=== PATIENT | female | born 2000 | race American Indian/Alaskan Native ===

== ENCOUNTER 2019-12-12 16:12 | Observation (INO) | payer MEDICAID ==
[2019-12-12] MEDS ORDERED: ACETAMINOPHEN 325 MG TAB PO PRN (16:45)
[2019-12-12] MEDS ORDERED: DOCUSATE SODIUM 100 MG CAP PO PRN (16:45)
--- NOTE | 2019-12-12 17:15 | History and Physical Report ---
History of Present Illness Date of examination: 12/12/19 Chief complaint: elevated blood pressure sent from clinic for evaluation History of present illness: 19yo G1 at 37+6/7 weeks by MAXINE with RACIEL 12/27/19, presents with elevated blood pressures in the office today (140/90's). At bedside, BP 130/80's. She denies ABARCA,BV,abdominal pain/contractions,vaginal bleeding, loss of fluid She was +ve trich: treated today. Previous PIH workup: 24 urine protein as below.She has had a nephrology consult for proteinuria. 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 Family/Genetic History: none Social history: no significant social history - Obstetrical History Expected Date of Delivery: 12/27/19 Actual Gestation: 37 Week(s) 6 Day(s) : 1 Medications and Allergies Allergies Allergy/AdvReac Type Severity Reaction Status Date / Time No Known Allergies Allergy Verified 12/12/19 16:36 Active Meds: Active Medications Acetaminophen (Tylenol) 650 mg PO Q4H PRN PRN Reason: Pain MILD(1-3)/Fever >100.5/ABARCA Docusate Sodium (Colace) 100 mg PO Q12H PRN PRN Reason: Constipation Multivitamins/Iron/Calcium ( Vitamin) 1 each PO QDAY REPLACED BY [facility] Review of Systems All systems: negative (denies ABARCA/BV,SOB or chest pain) - Vital Signs Vital signs: Vital Signs Pulse BP 95 H 137/88 12/12/19 16:30 12/12/19 16:30 Temp Pulse Resp BP Pulse Ox 98.4 F 89 18 137/88 99 12/12/19 16:35 12/12/19 17:06 12/12/19 16:35 12/12/19 16:35 12/12/19 17:06 - Physical Exam Breasts: Positive: deferred Cardiovascular: Regular rate Lungs: Positive: Clear to auscultation Abdomen: Positive: normal appearance, soft, normal bowel sounds Uterus: Positive: enlarged (FH 38cm) Extremities: Positive: normal Deep Tendon Reflex Grade: Normal +2 - Obstetrical FHR: category 1 Uterine Contraction Monitor Mode: External Cervical Dilatation: 1 Cervical Effacement Percentage: 60 station: -3 Uterine Contraction Pattern: Irregular Uterine Contraction Intensity: Mild Results All other labs normal. Assessment and Plan IUP at 37+6/7 weeks Elevated BP's in the office: PIH workup: awaiting 24 hour urine that was completed today and in process at [facility]. At this time conservative management is appropriate. Treat for BP's >160/110, MGSO4 for change in baseline >30/15mmHg GBS positive: abx in labor.Patient is not feeling contractions. If she declares herself expect . Pain meds PRN Trich positive: treated in the office today Maternal/ well being reassuring overall. Fallon GOLDSTEIN
[2019-12-12 17:43] LABS: Hematocrit 29.5 % (30.3-42.9); Hemoglobin 10.1 gm/dl (10.1-14.3); Mean Corpuscular HGB Conc 34 % (30-34); Mean Corpuscular Volume 86 fl (79-97); Platelet Count 147 K/mm3 (140-440); Red Blood Count 3.44 M/mm3 (3.65-5.03); Red Cell Distribution Width 13.2 % (13.2-15.2)
[2019-12-12 18:06] LABS: Alanine Aminotransferase 12 units/L (7-56)
--- NOTE | 2019-12-12 18:06 | Ultrasound Report ---
ULTRASOUND BIOPHYSICAL PROFILE INDICATION / CLINICAL INFORMATION: Elevated blood pressure. COMPARISON: None available. FINDINGS: BREATHING MOVEMENT = 2 GROSS BODY MOVEMENT = 2 TONE = 2 QUALITATIVE AMNIOTIC FLUID VOLUME = 2 TOTAL BIOPHYSICAL SCORE = 03/14 AMNIOTIC FLUID INDEX (cm) = 12.0 PRESENTATION: Cephalic. HEART RATE (beats per minute): 172 IMPRESSION: biophysical profile = 03/14 Signer Name: Raymon Leung MD Signed: 12/12/2019 6:01 PM Workstation Name: [id number]
[2019-12-12 18:13] LABS: Uric Acid 4.2 mg/dL (3.5-7.6)
[2019-12-13] MEDS ORDERED: BUTALB/ACETAMINOPHEN/CAFFEINE TAB PO PRN (00:55)
[2019-12-13] MEDS ORDERED: SIMETHICONE 80 MG CHEW TAB PO PRN (02:13)
[2019-12-13] MEDS ORDERED: PRENATAL VIT27-FE FUMARATE-FOLIC ACID VIT TAB PO SCH (10:00)
[2019-12-13 10:14] VITALS: BP 121/73
--- NOTE | 2019-12-13 12:58 | Progress Note ---
Assessment and Plan - Patient Problems (1) 38 weeks gestation of Status: Acute (2) Mild pre-eclampsia affecting first Status: Acute Plan to address problem: Asymptomatic Last two BPs 130/74, 121/73 24hr urine protein on 10/23: 257 Repeat 24hr urine protein at office on 12/11 still pending PIH labs at hospital on 12/11: Plt 147, UA 4.2, AST 16, ALT 12, LDH [address] Menjivar, he recommended f/u at the clinic on 12/16/19 and IOL @ 39 weeks IOL @ [facility] scheduled 12/24/29 @ 8:30pm. 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 - H&P Patient reports: movement normal, other (denies headache, visual disturbances or RUQ pain), no loss of fluid, no vaginal bleeding, no contractions Objective - Vital Signs Vital Signs: Vital Signs - 12hr 12/13/19 12/13/19 12/13/19 01:09 02:43 04:13 Temperature Pulse Rate 84 74 Respiratory 18 Rate Blood Pressure 137/88 138/82 12/13/19 12/13/19 12/13/19 05:43 08:43 08:49 Temperature Pulse Rate 76 86 85 Respiratory Rate Blood Pressure 147/87 138/86 130/74 12/13/19 12/13/19 08:52 10:13 Temperature 98.2 F Pulse Rate 105 H Respiratory Rate Blood Pressure 121/73 - Exam FHR: auscultation normal, category 1 Uterine Contraction Monitor Mode: External Cervical Dilatation: 1 Cervical Effacement Percentage: 60 station: -3 Uterine Contraction Pattern: Irregular - Labs Labs: Abnormal Labs 12/12/19 12/12/19 17:30 17:30 RBC 3.44 L Hct 29.5 L Creatinine 0.6 L Lactate Dehydrogenase 228 H Laboratory Results - last 24 hr 12/12/19 12/12/19 12/12/19 17:30 17:30 17:30 WBC 9.8 RBC 3.44 L Hgb 10.1 Hct 29.5 L MCV 86 MCH 29 MCHC 34 RDW 13.2 Plt Count 147 Creatinine 0.6 L Estimated GFR > 60 Uric Acid 4.2 AST 16 ALT 12 Lactate Dehydrogenase 228 H Blood Type O POSITIVE Antibody Screen Negative
--- NOTE | 2019-12-13 13:08 | Discharge Summary ---
Providers - Providers Date of Admission: 12/12/19 16:13 Date of discharge: 12/13/19 Attending physician: BRIDGETTE HATCH MD Primary care physician: BRIDGETTE HATCH MD Hospitalization Reason for admission: IUP at term, other (Elevated BPs) Discharge diagnosis: other (IUP at term undelivered) Condition at discharge: Stable Disposition: DC-01 TO HOME OR SELFCARE - Discharge Diagnoses (1) 38 weeks gestation of Status: Acute (2) Mild pre-eclampsia affecting first Status: Acute Comment: Asymptomatic Reviewed signs and symptoms of pre-eclampsia and patient instructed to follow-up if present Plan - Provider Discharge Summary Activity: routine Diet: routine Instructions: routine Additional instructions: [] Smoking cessation referral if applicable(refer to patient education folder for contact #) [] Refer to [facility] Booklet Call your doctor immediately for: * Severe persistent headache * Right upper abdominal pain * Shortness of breath * visual disturbances * Altered mental status - Follow up plan Follow up: BRIDGETTE HATCH MD [Primary Care Provider] - 3 Days (Follow-up at the office in 3 days) Forms: [facility] Discharge Summary
== END 2019-12-13 12:51 | disposition home or self-care (01) ==
LOC: TRG 16:12 → LD 16:13 → TRG 17:31
PROVIDERS: ADMIT Obstetrics & Gynecology; ATTEND Obstetrics & Gynecology
DX: O14.03 Mild to moderate pre-eclampsia, third trimester (principal); O98.813 Other maternal infectious and parasitic diseases complicating pregnancy, third trimester; B95.1 Streptococcus, group B, as the cause of diseases classified elsewhere; Z3A.38 38 weeks gestation of pregnancy
CPT/HCPCS: 36415; 76819; 82565; 83615; 84450; 84460; 84550; 85027; 86850; 86900; 86901; G0378

== ENCOUNTER 2019-12-13 18:30 | Inpatient (IN) | payer MEDICAID ==
[~2019-12-13 18:30] MED LIST: AMPICILLIN/NS 2 GM/100 ML 2 GM/100 ML BAG IV ONE; LIDOCAINE (2%) 20 MG/1 ML VIAL 20 ML MDV INFILTRATI ONE; TERBUTALINE 1 MG/1 ML INJ SUB-Q PRN; ePHEDrine SULFATE 50 MG/1 ML INJ IV PRN; fentaNYL 100 MCG/2 ML INJ IV PRN
--- NOTE | 2019-12-13 18:43 | History and Physical Report ---
History of Present Illness Date of examination: 12/13/19 Date of admission: 12/13/2019 Chief complaint: Leaking of water from vagina since 3:00 PM. History of present illness: 19 year old presents to L&D complaining of leaking of water from vagina since 3:00 PM today. Pt. denies vaginal bleeding. She reports irregular contractions. Patient received care at [facility] and records are available. LMP 03/22/19. EDC 12/27/2019 (based on LMP and confirmed by US). significant for the following: GBS positive, elevated LFTs, PIH vs. mild preeclampsia, trichomonas (treated during ), first trimester vaginal bleeidng (resolved), proteinuria early in (had urology referral). labs are as follows: O+, antibody screen negative, rubella immune, hepatitis B surface antigen negative, HIV negative, HSV 2 negative, gonorrhea negative, chlamydia negative, trichomonas negative/positive, AFP negative, panorama low risk, horizon negative, 1 hour sugar test 109, GBS positive. Past History Past Medical History: no pertinent history Past Surgical History: no surgical history [facility] History: trichomonas (treated during ). denies: chlamydia, gonorrhea, hepatitis B, hepatitis C, herpes, HIV, syphilis Family/Genetic History: none Social history: single, lives with family, full code. denies: smoking, alcohol abuse, prescription drug abuse, IV drug use - Obstetrical History Expected Date of Delivery: 12/27/19 Actual Gestation: 38 Week(s) 0 Day(s) : 1 Para: 0 Hx # Term Pregnancies: 0 Number of Pregnancies: 0 Spontaneous Abortions: 0 Induced : 0 Number of Living Children: 0 Medications and Allergies Allergies Allergy/AdvReac Type Severity Reaction Status Date / Time No Known Allergies Allergy Verified 12/12/19 16:36 Home Medications Medication Instructions Recorded Confirmed Last Taken Type Vit-Fe Fumar-FA [ 1 tab PO QDAY 12/12/19 12/12/19 12/12/19 11:00 History Vitamin] Active Meds: Active Medications Ephedrine Sulfate (Ephedrine Sulfate) 10 mg IV Q2M PRN PRN Reason: Hypotension Fentanyl (Sublimaze) 100 mcg IV Q2H PRN PRN Reason: Pain,Severe (7-10) LABOR PAIN Oxytocin/Sodium Chloride (Pitocin/Ns 20 Unit/1000ml Drip) 20 units in 1,000 mls @ 125 mls/hr IV DIRECT SAURABH Oxytocin/Sodium Chloride (Pitocin/Ns 30 Unit/500ml) 30 units in 500 mls @ 0 mls/hr IV TITR SAURABH; Protocol Lactated Ringer's (Lactated Ringers) 1,000 mls @ 125 mls/hr IV DIRECT SAURABH Ampicillin Sodium (Ampicillin/Ns 2 Gm/100 Ml) 2 gm in 100 mls @ 100 mls/hr IV ONCE ONE; Protocol Stop: 12/13/19 19:29 Ampicillin Sodium (Ampicillin/Ns 1 Gm/50 Ml) 1 gm in 50 mls @ 100 mls/hr IV Q4H SAURABH; Protocol Lidocaine (Xylocaine 2%) 20 ml INFILTRATI ONCE ONE Stop: 12/13/19 18:31 Terbutaline Sulfate (Brethine) 0.25 mg SUB-Q ONCE PRN PRN Reason: Hyperstimulation/Hypertonicity Review of Systems All systems: negative (leaking of water from vagina; irregular contractions) - Vital Signs Vital signs: Vital Signs Pulse BP 71 138/90 12/13/19 18:35 12/13/19 18:35 Temp Pulse Resp BP Pulse Ox 71 138/90 12/13/19 18:35 12/13/19 18:35 - Physical Exam Abdomen: Positive: normal appearance, soft. Negative: distention, tenderness, guarding, rigidity Genitourinary (Female): Positive: normal external genitalia, normal perenium. Negative: perineal/vulvar lesions (no lesions noted on careful exam with bright light upon admission) Vagina: Positive: normal moisture Uterus: Positive: enlarged. Negative: tender Anus/Rectum: Positive: normal perianal skin Extremities: Positive: normal, edema (pedal edema bilaterally). Negative: tenderness - Obstetrical FHR: category 1 Uterine Contraction Monitor Mode: External Cervical Dilatation: 2 Cervical Effacement Percentage: 60 station: -3 Uterine Contraction Pattern: Irregular Uterine Contraction Intensity: Mild Results Result Diagrams: 12/13/19 18:54 12/13/19 18:54 All other labs normal. Assessment and Plan A: at 38 weeks gestation. Spontaneous rupture of membranes. PIH vs. mild preeclampsia. GBS positive. P: Admit. EFM. Preeclamptic labs. GBS prophylaxis. Augmentation of labor with Pitocin. Discussed with patient risks and benefits of Pitocin augmentation of labor. Patient consented to Pitocin augmentation of labor.
[2019-12-13] MEDS ORDERED: OXYTOCIN DRIP 30 UNITS/500 ML BAG IV SCH (19:00)
[2019-12-13] MEDS ORDERED: OXYTOCIN 20 UNIT/1000ML DRIP 20 UNITS/1,000 ML BAG IV SCH (19:00)
[2019-12-13 19:11] LABS: Basophils % (Auto) 0.2 % (0.0-1.8); Eosinophils % (Auto) 0.4 % (0.0-4.3); Hematocrit 29.6 % (30.3-42.9); Hemoglobin 9.8 gm/dl (10.1-14.3); Lymphocytes # (Auto) 1.4 K/mm3 (1.2-5.4); Lymphocytes % (Auto) 18.3 % (13.4-35.0); Mean Corpuscular HGB Conc 33 % (30-34); Mean Corpuscular Volume 87 fl (79-97); Monocytes # (Auto) 0.7 K/mm3 (0.0-0.8); Monocytes % (Auto) 8.8 % (0.0-7.3); Platelet Count 154 K/mm3 (140-440); Red Blood Count 3.41 M/mm3 (3.65-5.03); Red Cell Distribution Width 13.2 % (13.2-15.2)
[2019-12-13 19:36] LABS: Alanine Aminotransferase 12 units/L (7-56); Albumin 3.4 g/dL (3.9-5); BUN/Creatinine Ratio 9; Blood Urea Nitrogen 6 mg/dL (7-17); Calcium 9.4 mg/dL (8.4-10.2); Hemolysis Index 0; Uric Acid 4.6 mg/dL (3.5-7.6)
[2019-12-13] MEDS: LACTATED RINGERS 1,000 ML IV SCH (21:52)
[2019-12-13] MEDS ORDERED: hydrALAZINE 20 MG/1 ML INJ IV PRN (23:24)
--- NOTE | 2019-12-13 23:24 | Event Note ---
Date: 12/13/19 BPs elevated. Patient has Labetalol ordered for BP control. Will add Hydralazine for any markedly elevated blood pressures. Magnesium Sulfate ordered. Informed Dr. Menjivar re: elevated blood pressures, interventions taken/meds ordered. Discussed POC with patient and her S.O.
[2019-12-13] MEDS ORDERED: MAGNESIUM SULFATE 4 GM/100 ML BAG IV ONE (23:25)
[2019-12-14] MEDS ORDERED: AMPICILLIN/NS 2 GM/100 ML 2 GM/100 ML BAG IV ONE (00:31)
[2019-12-14] MEDS ORDERED: ONDANSETRON 4 MG/2 ML INJ IV ONE (01:10)
[2019-12-14] MEDS ORDERED: ONDANSETRON 4 MG/2 ML INJ ONE (01:12)
[2019-12-14] MEDS ORDERED: DEXMEDETOMIDINE 200 MCG/2 ML VIAL IV ONE (01:15)
[2019-12-14] MEDS ORDERED: ePHEDrine SULFATE 50 MG/1 ML INJ IV PRN (01:34)
[2019-12-14] MEDS ORDERED: NALOXONE 2 MG/2 ML INJ IV PRN (01:34)
--- NOTE | 2019-12-14 01:34 | Anesthesia Consultation ---
Anesthesia Consult and Med Hx Date of service: 12/14/19 - Airway Anesthetic Teeth Evaluation: Good ROM Head & Neck: Adequate Mental/Hyoid Distance: Adequate Mallampati Class: Class II Intubation Access Assessment: Probably Good - Pulmonary Exam CTA: Yes - Cardiac Exam Cardiac Exam: RRR - Pre-Operative Health Status ASA Pre-Surgery Classification: ASA3 Proposed Anesthetic Plan: Epidural - Pulmonary Hx Asthma: Yes (Albuterol PRN last use 2yrs ago) COPD: No Hx Pneumonia: No - Cardiovascular System Hx Hypertension: Yes - Central Nervous System Hx Seizures: No Hx Psychiatric Problems: No - Endocrine Hx Renal Disease: Yes (hx of renal stones, last omcodee 2017) Hx End Stage Renal Disease: No Hx Hypothyroidism: No Hx Hyperthyroidism: No - Hematic Hx Anemia: No Hx Sickle Cell Disease: No (has sickle cell trait) - Other Systems Hx Alcohol Use: No
[2019-12-14] MEDS: fentaNYL-BUPIV 2 MCG/ML-0.125% 200 MCG/100 ML BAG EPIDURAL SCH ×3 (02:15→16:53)
[2019-12-14] MEDS: MAGNESIUM SULFATE 40GM/1000ML 40 GM/1,000 ML BAG IV SCH (02:21)
[2019-12-14] MEDS: AMPICILLIN/NS 1 GM/50 ML 1 GM/50 ML BAG IV SCH ×3 (04:54→15:44)
[2019-12-14] MEDS: LACTATED RINGERS 1,000 ML IV SCH (09:46)
--- NOTE | 2019-12-14 10:00 | Event Note ---
Date: 12/14/19 Patient is having labor augmented due to SROM and due to preeclampsia. Patient denies headache, visual disturbance, nausea or vomiting, abdominal pain. SVE 5/90/-3. Pitocin at 10 milliunits per minute. Patient is comfortable after receiving epidural. Plan to use IUPC if no change on next vaginal exam.
[2019-12-14] MEDS ORDERED: BUPIVACAINE/PF (0.25%) 2.5 MG/ML 10 ML VIAL INFILTRATI ONE ×2 (10:05→15:55)
--- NOTE | 2019-12-14 12:32 | Event Note ---
Date: 12/14/19 Several late appearing FHR decelerations noted. Pitocin is off; patient is resting in left lateral position and has oxygen per face mask at [address] Menjivar re: patient at 11:20 and 11:[address] Menjivar is on his way in to hospital to evaluate for mode of delivery. Patient remains afebrile.
--- NOTE | 2019-12-14 16:56 | Event Note ---
Date: 12/14/19 No cervical change on vaginal exam. Still [address] Menjivar and informed him of no cervical change, prolonged ROM, and FHR tracing. Dr. Menjivar states to continue Pitocin augmentation.
--- NOTE | 2019-12-14 18:02 | Event Note ---
Date: 12/14/19 Dr. Menjivar called section. Team notified. Mauro put in.
[2019-12-14] MEDS ORDERED: BICITRA ORAL LIQD 30ML PO SCH (18:03)
[2019-12-14] MEDS ORDERED: FAMOTIDINE 20 MG/2 ML INJ IV SCH (18:03)
--- NOTE | 2019-12-14 18:34 | Event Note ---
Date: 12/14/19 I agree with hydramatic specialist Shari Johns that patient has been slow to progress coupled with intolerance of labor. Plan: for delivery.
[2019-12-14] MEDS ORDERED: OXYTOCIN 20 UNIT/1000ML DRIP 20 UNITS/1,000 ML BAG IV SCH ×2 (19:00→20:00)
[2019-12-14] MEDS ORDERED: ceFAZolin/Water 2 GM/20 ML 2 GM/20 ML SYRINGE IV SCH (19:00)
[2019-12-14] MEDS ORDERED: LACTATED RINGERS 1,000 ML IV SCH (19:00)
[2019-12-14] MEDS ORDERED: METOCLOPRAMIDE 10 MG/2 ML INJ IV SCH (19:03)
[2019-12-14] MEDS ORDERED: BUPIVACAINE/PF (0.5%) 5 MG/1 ML 30 ML VIAL INFILTRATI ONE (19:05)
[2019-12-14] MEDS ORDERED: LIDOCAINE 2%/EPINEPHRINE 1:200,000 VIAL (20 ML) INFILTRATI ONE (19:05)
[2019-12-14] MEDS ORDERED: KETOROLAC 30 MG/1 ML INJ ONE (19:05)
[2019-12-14] MEDS ORDERED: OXYTOCIN 10 UNIT/1 ML INJ ONE (19:05)
[2019-12-14] MEDS ORDERED: SODIUM BICARB 8.4% 50 MEQ/50 ML VIAL IV ONE (19:05)
[2019-12-14] MEDS ORDERED: ceFAZolin/STERILE WATER 2 GM/20 ML SYRINGE IV ONE (19:07)
[2019-12-14] MEDS ORDERED: WATER FOR IRRIG STERILE 1,500 ML BOTTLE IR ONE (19:16)
[2019-12-14] MEDS ORDERED: SODIUM CHLORIDE 0.9% IRR 1,500 ML BOTTLE IR ONE (19:16)
[2019-12-14] MEDS ORDERED: ACETAMINOPHEN 325 MG TAB PO PRN (19:51)
[2019-12-14] MEDS ORDERED: WITCH HAZEL/ GLYCERIN PAD TP PRN (19:51)
[2019-12-14] MEDS ORDERED: LANOLIN/ZINC/DIMETHICONE (LANSINOH) 7 GM TP PRN (19:51)
[2019-12-14] MEDS ORDERED: ONDANSETRON 4 MG/2 ML INJ IV PRN (19:51)
[2019-12-14] MEDS ORDERED: LIDOCAINE MPF (2%) 20 MG/1 ML VIAL 5 ML ONE (19:51)
[2019-12-14] MEDS ORDERED: NALOXONE 0.4 MG/1 ML INJ IV PRN (19:51)
--- NOTE | 2019-12-14 19:58 | Operative Report ---
Operative Report Operative Report: Date of surgery: December 14, 2019 Preoperative diagnoses:[] Failure to progress, intolerance of labor Postoperative diagnos: The same. Operation: Lower segment transverse delivery Surgeon:Lenny Menjivar MD Pump Erector: Herminio Rai CRNA Anesthesia: S. Ziebach block Estimated blood loss: 500 mL Complications: None Findings: There was a live baby boy in cephalic presentation, occiput posterior within the false maternal pelvis. weight was 7 pounds t 12 ounces, with Apgars 7/9. He uterus, fallopian tubes and the ovaries were all grossly normal. There were no pathologies identifiable within the lower abdomen and pelvis. Procedure in detail: The patient was taken to the operating room and given a spinal block. Patient was placed in the straight supine position and a Tidwell catheter was inserted. The patient was prepped in the abdomen. The drapes were placed. A timeout was done. With the go ahead from the slip filler, a Pfannenstiel incision was made. This incision was carried across the subcutaneous layer to the fascia which was also divided transversely. The recti abdominis muscle flaps were stripped from the fascia using a combination of blunt and sharp dissections. The muscles were in the midline to gain access to the anterior parietal peritoneum whi ch was divided after excluding any underlying viscera. The access to the peritoneal cavity was then widened by manual stretching. The bladder blade was applied. The utero vesicle peritoneal flap was divided transversely allowing the bladder to be displaced caudally. The uterine incision was placed in the lower segment transversely. The uterine incision was carried to the decidual layer. The uterine incision was extended on both sides using the bandage scissors. The amniotic sac was ruptured with clear fluid. The head was lifted out of the false maternal pelvis and delivered through the incision using fundal pressure. The airways were bulb suctioned beginning with the mouth. Continuing fundal pressure combined with traction on the mandibular processes of the jaw delivered the rest of the baby. The umbilical cord was double clamped and divided. The baby was carefully transferred to the pediatric team. The placenta was manually removed from the uterine cavity. The uterine cavity was explored and was empty of any placental remnants. The uterine incision was repaired in 2 layers with #1 Vicryl. The surgical line on the uterus was hemostatic. Blood and clots were cleared from the peritoneal cavity. The anterior parietal peritoneum was repaired with #1 Vicryl. The fascia was repaired with #1 Vicryl. The subcutaneous layer was made hemostatic using the B ovie before the skin was closed subcuticularly with 4-0 Vicryl. There were no complications. The estimated blood loss was 500 mL. All sponges and instrument counts were correct. Patient was safely transferred to the recovery room.
--- NOTE | 2019-12-14 20:23 | Post Anesthesia Evaluation ---
- Post Anesthesia Evaluation Patient Participated: Yes Airway Patent: Yes Stable Respiratory Function: Yes Nausea/Vomiting: No Temp > 96.8F: Yes Pain Manageable: Yes Adequeate Hydration: Yes Anesthesia Complications: No Block Receding Appropriately: Yes
[2019-12-14 21:46] LABS: Amphetamine Screen,Urine PRESUMPTIVE NEGATIVE; Benzodiazepines Screen,Urine PRESUMPTIVE NEGATIVE; Cannabinoid Screen,Urine PRESUMPTIVE NEGATIVE; Cocaine Screen,Urine PRESUMPTIVE NEGATIVE; Methadone Screen,Urine PRESUMPTIVE NEGATIVE; Opiate Screen,Urine PRESUMPTIVE NEGATIVE
[2019-12-14] MEDS ORDERED: miSOPROStol 200 MCG TAB ONE (21:50)
[2019-12-14] MEDS ORDERED: miSOPROStol 200 MCG TAB PR ONE (21:50)
[2019-12-14 21:51] LABS: Bilirubin,Urine NEG (Negative); Blood,Urine LG (Negative); Color,Urine Straw (Yellow); Protein,Urine <15 mg/dL mg/dL (Negative); Urobilinogen,Urine < 2.0 mg/dL (<2.0)
--- NOTE | 2019-12-14 23:42 | Event Note ---
Date: 12/14/19 Was asked by nurse to come evaluate patient's vaginal bleeding. Patient has had primary LTCS earlier this evening. Nurse states she has already called surgeon re: patient's bleeding. Patient has paulina pad on which is not yet saturated; nurse states paulina pad was changed about an hour ago. No clots seen. Fundus firm and midline below umbilicus with fundal massage. Small trickle of bright red vaginal bleeding noted with fundal massage; this trickle resolved as uterus firmed more during fundal massage. Patient is currently receiving IV Pitocin. Judy fonseca states she has also given patient rectal Cytotec 800 micrograms at 22:04. Patient is receiving magnesium sulfate. Spoke with Dr. Menjivar on the phone and informed him of all of the above, including trickle of blood which resolved with fundal massage, and interventions patient has already received including Pitocin and Cytotec. Dr. Menjivar states to continue the IV Pitocin and magnesium sulfate as he has already ordered; he states no need to give Hemabate or any additional medications for the bleeding other than the Pitocin which patient is already receiving. No new orders received from Dr. Menjivar. Relayed what Dr. Menjivar said to patient's nurse and to charge nurse.
[2019-12-15] MEDS ORDERED: ceFAZolin/NS 1 GM/50 ML 1 GM/50 ML BAG IV SCH (02:00)
[2019-12-15] MEDS: MORPHINE 4 MG/1 ML INJ IV PRN ×2 (03:25→15:46)
[2019-12-15] MEDS: MAGNESIUM SULFATE 40GM/1000ML 40 GM/1,000 ML BAG IV SCH (05:33)
[2019-12-15] MEDS: KETOROLAC 30 MG/1 ML INJ IV PRN ×3 (07:58→21:38)
[2019-12-15] MEDS: HYDROcodone/ACETAMINOPHEN 5-325 MG TAB PO PRN ×3 (08:00→21:37)
[2019-12-15] MEDS: LACTATED RINGERS 1,000 ML IV SCH (08:34)
[2019-12-15 08:36] LABS: Hematocrit 27.6 % (30.3-42.9)
--- NOTE | 2019-12-15 11:14 | Progress Note ---
Assessment and Plan /postop day 1 S/P primary LTCS. Preeclampsia with severe features, on magnesium sulfate. Anemia. P: Continue magnesium sulfate and Labetalol. Supplement with iron. Continue SCDs. Subjective - Subjective Date of service: 12/15/19 Principal diagnosis: day 1 S/P primary LTCS; preeclampsia with severe features Interval history: /postop day 1 S/P primary LTCS. Preeclampsia with severe features. Magnesium Sulfate continues. Patient denies headache, chest pain, cough, shortness of breath, visual disturbance. Her only complaint is mild incisional pain, which she states is relieved by pain medication. Patient reports: appetite normal, pain well controlled, flatus, no nauseated : doing well Objective - Vital Signs Latest vital signs: Vital Signs Temp Pulse Resp BP BP BP Pulse Ox 12/15/19 10:46 92 H 139/73 12/15/19 10:45 94 H 97 12/15/19 10:44 93 H 153/77 12/15/19 10:43 98.9 F 12/15/19 10:42 100 H 146/71 12/15/19 09:23 112 H 97 12/15/19 09:18 104 H 97 12/15/19 09:13 107 H 97 12/15/19 09:08 101 H 97 12/15/19 09:03 108 H 97 12/15/19 08:58 108 H 98 12/15/19 08:53 100 H 98 12/15/19 08:48 94 H 96 12/15/19 08:43 100 H 97 12/15/19 08:41 92 H 140/88 12/15/19 08:38 94 H 97 12/15/19 08:33 97 H 98 12/15/19 08:28 96 H 97 12/15/19 08:23 93 H 98 12/15/19 08:18 104 H 97 12/15/19 08:13 103 H 98 12/15/19 08:08 102 H 98 12/15/19 08:03 98 H 97 12/15/19 08:00 16 12/15/19 07:58 110 H 16 97 12/15/19 07:53 102 H 98 12/15/19 07:50 96 H 146/83 12/15/19 07:48 100 H 98 12/15/19 07:45 97.7 F 98 H 16 146/83 140/88 97 051020 07:43 98 H 98 05 07:38 98 H 97 05 07:35 100 H 135/75 05 07:33 97 H 98 05 07:28 103 H 98 12/15/19 07:23 96 H 97 05 07:18 97 H 98 12/15/19 07:13 93 H 97 12/15/19 07:08 92 H 97 12/15/19 07:03 94 H 98 12/15/19 06:58 97 H 97 12/15/19 06:53 92 H 98 05 06:48 91 H 96 05 06:43 94 H 96 12/15/19 06:38 101 H 97 12/15/19 06:35 96 H 147/82 05 06:33 96 H 97 12/15/19 06:28 94 H 96 05 06:23 92 H 96 12/15/19 06:18 93 H 97 12/15/19 06:13 90 96 05 06:08 89 96 05 06:03 92 H 97 12/15/19 05:58 84 94 0510 05:53 87 97 05 05:48 89 97 05 05:43 101 H 97 12/15/19 05:38 88 96 05 05:35 90 125/61 0520 05:33 94 H 96 0520 05:28 98 H 97 12/15/19 05:23 91 H 97 0520 05:18 89 96 0520 05:13 89 97 0520 05:08 96 H 98 05 05:03 100 H 96 051020 05:00 99 F 05 04:58 94 H 96 05 04:53 94 H 96 0520 04:48 93 H 96 051020 04:43 88 96 051020 04:38 92 H 97 0510 04:35 88 130/55 05/1020 04:33 93 H 97 05 04:28 86 97 05/10/20 04:23 86 96 05/10/20 04:18 92 H 97 05/10/20 04:13 91 H 96 05/10/20 04:08 94 H 97 05/10/20 04:03 92 H 97 05/10/20 03:58 98 H 97 05/10/20 03:53 107 H 97 05/10/20 03:48 98 H 97 05/10/20 03:43 93 H 97 05/10/20 03:38 96 H 97 05/10/20 03:35 100 H 134/57 05/10/20 03:33 95 H 97 05/10/20 03:28 99 H 97 05/10/20 03:23 98 H 97 05/10/20 03:18 99 H 97 05/10/20 03:13 95 H 97 05/1020 03:08 92 H 97 05/10/20 03:03 93 H 97 05/10/20 03:00 97.8 F 0520 02:58 96 H 97 05/1020 02:53 94 H 97 05/10/20 02:48 99 H 97 05/10/20 02:43 95 H 96 05/10/20 02:38 92 H 97 05/10/20 02:35 93 H 126/57 05/10/20 02:33 101 H 97 05/10/20 02:28 93 H 97 05/10/20 02:23 95 H 97 05/10/20 02:18 97 H 97 05/10/20 02:13 102 H 97 05/10/20 02:08 91 H 96 05/10/20 02:03 96 H 96 05/10/20 01:58 107 H 98 05/10/20 01:53 91 H 95 05/10/20 01:48 94 H 95 05/10/20 01:43 91 H 95 05/10/20 01:38 92 H 95 05/10/20 01:35 97 H 142/74 05/10/20 01:33 91 H 95 05/10/20 01:31 87 94 05/10/20 01:28 92 H 95 05/10/20 01:23 91 H 95 05/10/20 01:18 91 H 95 05/10/20 01:13 90 95 05/10/20 01:08 93 H 95 05/10/20 01:03 107 H 96 12/15/19 00:58 90 97 12/15/19 00:57 93 H 94 12/15/19 00:53 92 H 95 12/15/19 00:52 88 94 12/15/19 00:48 88 95 12/15/19 00:43 87 96 12/15/19 00:38 87 97 12/15/19 00:35 88 140/60 12/15/19 00:33 88 96 12/15/19 00:28 89 96 12/15/19 00:23 84 98 12/15/19 00:22 88 94 12/15/19 00:18 90 96 12/15/19 00:13 84 97 12/15/19 00:08 90 97 12/15/19 00:03 83 96 12/15/19 00:00 98.9 F 82 97 12/14/19 23:58 90 97 12/14/19 23:53 83 96 12/14/19 23:48 82 97 12/14/19 23:43 82 97 12/14/19 23:38 83 98 12/14/19 23:35 81 145/88 12/14/19 23:33 84 99 12/14/19 23:28 103 H 98 12/14/19 23:23 100 H 99 12/14/19 23:18 99 H 97 12/14/19 23:13 92 H 100 12/14/19 23:08 90 99 12/14/19 23:03 88 100 12/14/19 22:58 83 100 12/14/19 22:53 81 99 12/14/19 22:48 82 97 12/14/19 22:43 88 99 12/14/19 22:38 79 97 12/14/19 22:33 85 98 12/14/19 22:31 78 87 12/14/19 22:10 98.6 F 80 12 140/96 97 12/14/19 22:00 69 18 145/93 97 12/14/19 21:39 97.8 F 82 22 137/90 98 12/14/19 21:15 84 21 148/95 98 12/14/19 21:00 77 17 139/90 97 12/14/19 20:45 76 17 136/92 97 12/14/19 20:30 78 17 139/92 96 12/14/19 20:15 79 18 140/92 96 12/14/19 20:10 77 16 142/91 96 12/14/19 20:04 80 18 138/89 96 12/14/19 19:59 98.1 F 92 H 21 125/82 97 12/14/19 18:55 93 H 126/76 12/14/19 18:52 83 97 12/14/19 18:47 84 97 12/14/19 18:42 93 H 120/74 98 12/14/19 18:37 95 H 100 12/14/19 18:32 80 100 12/14/19 18:27 92 H 100 12/14/19 18:26 87 118/65 12/14/19 18:22 87 100 12/14/19 18:17 91 H 100 12/14/19 18:12 87 131/73 100 12/14/19 18:07 93 H 99 12/14/19 18:02 95 H 100 12/14/19 17:57 88 100 12/14/19 17:56 86 116/64 12/14/19 17:52 82 100 12/14/19 17:47 89 94 12/14/19 17:42 91 H 95 12/14/19 17:40 90 137/68 12/14/19 17:39 91 H 94 12/14/19 17:37 93 H 95 12/14/19 17:34 95 H 94 12/14/19 17:32 91 H 95 12/14/19 17:27 94 H 95 12/14/19 17:26 93 H 134/70 12/14/19 17:22 94 H 95 12/14/19 17:17 102 H 97 12/14/19 17:12 91 H 136/72 96 12/14/19 17:07 95 H 100 12/14/19 17:02 83 100 12/14/19 17:00 98.4 F 12/14/19 16:57 95 H 100 12/14/19 16:56 91 H 129/75 12/14/19 16:52 91 H 100 12/14/19 16:47 92 H 100 12/14/19 16:42 81 100 12/14/19 16:40 81 121/74 12/14/19 16:37 79 100 12/14/19 16:32 81 100 12/14/19 16:28 79 135/80 12/14/19 16:27 80 100 12/14/19 16:22 82 100 12/14/19 16:17 84 100 12/14/19 16:12 86 98 12/14/19 16:11 82 138/84 12/14/19 16:07 82 97 12/14/19 16:02 85 99 12/14/19 15:57 99 H 98 12/14/19 15:56 96 H 153/92 12/14/19 15:52 101 H 98 12/14/19 15:47 100 H 98 12/14/19 15:42 99 H 142/89 98 12/14/19 15:37 99 H 98 12/14/19 15:32 96 H 97 12/14/19 15:27 95 H 97 12/14/19 15:25 103 H 138/80 12/14/19 15:22 90 96 12/14/19 15:17 89 96 12/14/19 15:12 92 H 134/77 98 12/14/19 15:07 105 H 97 12/14/19 15:02 90 97 12/14/19 15:00 98.1 F 12/14/19 14:57 87 97 12/14/19 14:55 90 133/87 12/14/19 14:52 90 96 12/14/19 14:47 93 H 97 12/14/19 14:43 92 H 132/85 12/14/19 14:42 93 H 97 12/14/19 14:37 87 97 12/14/19 14:32 105 H 98 12/14/19 14:27 88 100 12/14/19 14:25 89 125/63 12/14/19 14:22 87 100 12/14/19 14:17 85 100 12/14/19 14:12 90 99 12/14/19 14:11 85 125/65 12/14/19 14:07 87 100 12/14/19 14:02 87 99 12/14/19 13:57 88 100 12/14/19 13:55 85 125/70 12/14/19 13:52 86 100 12/14/19 13:47 92 H 100 12/14/19 13:42 99 H 117/68 98 12/14/19 13:37 100 H 100 12/14/19 13:32 97 H 99 12/14/19 13:27 96 H 141/76 100 12/14/19 13:22 100 H 100 12/14/19 13:17 88 100 12/14/19 13:12 90 133/71 100 12/14/19 13:07 84 100 12/14/19 13:02 87 100 12/14/19 13:00 98.6 F 12/14/19 12:57 91 H 97 12/14/19 12:55 83 134/63 12/14/19 12:52 86 100 12/14/19 12:47 98 H 98 12/14/19 12:42 98 H 99 12/14/19 12:40 96 H 134/65 12/14/19 12:37 85 100 12/14/19 12:32 85 100 12/14/19 12:27 88 100 12/14/19 12:25 88 130/63 12/14/19 12:22 91 H 100 12/14/19 12:17 91 H 100 12/14/19 12:12 85 117/59 100 12/14/19 12:07 86 100 12/14/19 12:02 87 100 12/14/19 11:57 87 99 12/14/19 11:56 86 118/74 12/14/19 11:52 87 100 12/14/19 11:49 18 12/14/19 11:47 85 100 12/14/19 11:42 84 100 12/14/19 11:40 104 H 105/59 12/14/19 11:37 91 H 95 12/14/19 11:34 94 H 94 12/14/19 11:32 91 H 95 12/14/19 11:27 93 H 95 12/14/19 11:26 90 109/57 12/14/19 11:22 92 H 95 12/14/19 11:17 97 H 117/55 96 12/14/19 11:12 105 H 97 12/14/19 11:11 93 H 119/70 Intake and Output 12/14/19 12/15/19 12/15/19 23:59 07:59 15:59 Intake Total 2700 Output Total 550 500 100 Balance 2150 -500 -100 Intake: IV 2700 Lactated Ringers 1,000 ml 1000 @ 125 mls/hr IV DIRECT [facility] Rx#:[id number] MAGNESIUM SULFATE 40GM/ 1000 1000ML 40 gm In 1,000 ml @ 2 GM/HR 50 mls/hr IV DIRECT [facility] Rx#:[id number] Output: Urine 550 500 100 Indwelling Catheter 350 500 Uretheral (T[place]well) 100 Other: Total, Output Amount 100 500 Estimated Blood Loss 500 - Exam Cardiovascular: Present: Regular rate, Normal S1, Normal S2 Lungs: Present: Clear to auscultation Abdomen: Present: normal appearance, soft. Absent: distention, tenderness, guarding, rigidity Uterus: Present: normal, firm, fundal height below umbilicus. Absent: bogginess, tenderness Extremities: Present: edema (mild edema). Absent: tenderness Incision: Present: normal, dry, dressed - Labs Labs: Abnormal lab results 12/14/19 12/14/19 12/14/19 Range/Units 12:20 17:06 23:20 Hgb (10.1-14.3) gm/dl Hct (30.3-42.9) % Magnesium 3.70 H 4.80 H 3.90 H (1.7-2.3) mg/dL 12/15/19 Range/Units 08:16 Hgb 9.0 L (10.1-14.3) gm/dl Hct 27.6 L (30.3-42.9) % Magnesium (1.7-2.3) mg/dL
[2019-12-15] MEDS ORDERED: FERROUS SULFATE 325 MG TAB PO ONE (22:00)
[2019-12-15] MEDS ORDERED: SIMETHICONE 80 MG CHEW TAB PO PRN (23:31)
[2019-12-16] MEDS: HYDROcodone/ACETAMINOPHEN 5-325 MG TAB PO PRN ×2 (03:47→14:20)
[2019-12-16] MEDS: IBUPROFEN 800 MG TAB PO PRN ×2 (05:52→21:24)
[2019-12-16] MEDS: FERROUS SULFATE 325 MG TAB PO SCH ×2 (10:48→21:24)
--- NOTE | 2019-12-16 11:01 | Progress Note ---
Assessment and Plan - Patient Problems (1) S/P primary low transverse Current Visit: Yes Status: Acute Plan to address problem: POD 2 - stable Continue routine postop orders Ambulation encouraged, as tolerated Abdominal binder ordered Discharge to home 12/17/19 Follow-up at [facility] as needed or in 1 week for incision and BP check (2) Single live Current Visit: Yes Status: Acute (3) Pre-eclampsia Current Visit: Yes Status: Acute Qualifiers: Trimester: third trimester Qualified Code(s): O14.93 - Unspecified pre- eclampsia, third trimester Plan to address problem: Asymptomatic Completed magnesium sulfate therapy Continue Labetalol 100mg PO BID (4) Anemia due to blood loss, acute Current Visit: Yes Status: Acute Plan to address problem: Asymptomatic Continue iron therapy Subjective - Subjective Date of service: 12/16/19 Principal diagnosis: POD #2; Pre-eclampsia with severe features Interval history: see [facility] - H&P, Event Notes, 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 Note Patient reports: appetite normal, voiding normally, pain well controlled, flatus, ambulating normally, other (denies headache, visual disturbances or RUQ pain), no dizzy ambulation, no bowel movement : doing well, bottle feeding Objective - Vital Signs Latest vital signs: Vital Signs Temp Pulse Resp BP BP BP Pulse Ox 12/16/19 09:27 80 137/86 12/16/19 09:17 98.1 F 80 18 137/86 95 12/16/19 04:23 98.1 F 88 18 142/79 95 12/15/19 22:55 98.5 F 82 20 133/88 96 12/15/19 22:28 87 134/80 12/15/19 22:21 84 18 151/88 12/15/19 22:20 84 151/88 12/15/19 21:58 94 H 143/84 12/15/19 21:46 100 H 18 136/80 12/15/19 21:43 100 H 136/80 12/15/19 21:40 93 H 140/84 12/15/19 21:38 18 12/15/19 21:28 93 H 140/84 12/15/19 21:03 96 H 129/81 12/15/19 21:00 98.8 F 96 H 18 129/81 12/15/19 20:43 96 H 156/100 12/15/19 20:03 88 146/85 12/15/19 19:23 93 H 138/89 12/15/19 19:20 98.4 F 85 18 138/89 12/15/19 16:07 98.2 F 12/15/19 16:02 85 152/85 12/15/19 15:22 90 154/89 12/15/19 15:18 87 98 12/15/19 15:17 89 145/83 12/15/19 15:16 97.8 F 87 18 145/83 98 12/15/19 15:13 90 98 Intake and Output 12/15/19 12/16/19 12/16/19 23:59 07:59 15:59 Intake Total 500 120 Output Total 1800 750 900 Balance -1800 -250 -780 Intake: Oral 200 120 Intake, Free Water 300 Output: Urine 1800 750 900 Indwelling Catheter 1700 Uretheral (T[place]well) 100 Void 750 900 Other: Total, Intake Amount 200 120 Total, Output Amount 300 350 900 # Voids Indwelling Catheter 4 Void 1 - Exam Abdomen: Present: normal appearance, soft Vulva: both: normal Uterus: Present: normal, firm, fundal height below umbilicus Extremities: Present: normal Incision: Present: normal, dry, intact, dressed Comments: small lochia - Labs Labs: Abnormal lab results 12/15/19 12/15/19 12/15/19 Range/Units 14:30 16:28 23:58 Magnesium 5.30 H 5.10 H 4.00 H (1.7-2.3) mg/dL
--- NOTE | 2019-12-16 11:09 | Discharge Summary ---
Providers - Providers Date of Admission: 12/14/19 18:14 Date of discharge: 12/17/19 Attending physician: BRIDGETTE HATCH MD Primary care physician: BRIDGETTE HATCH MD Hospitalization Reason for admission: active labor, IUP at term Delivery: Procedure: primary low transverse Episiotomy: none Laceration: none Incision: normal, dry, intact Other procedures: none complications: none Discharge diagnosis: IUP at term delivered [place] baby: male Hospital course: Uncomplicated Condition at discharge: Stable Disposition: DC-01 TO HOME OR SELFCARE - Discharge Diagnoses (1) S/P primary low transverse Status: Acute (2) Single live Status: Acute (3) Pre-eclampsia Status: Acute Qualifiers: Trimester: third trimester Qualified Code(s): O14.93 - Unspecified pre- eclampsia, third trimester Comment: Completed magnesium sulfate therapy Continue Labetalol 100mg PO BID (4) Anemia due to blood loss, acute Status: Acute Comment: Asymptomatic Continue iron therapy Eat iron-rich foods Plan - Discharge Medications Prescriptions: Ferrous Sulfate [Feosol 325 MG tab] 325 mg PO BID #60 tablet Ibuprofen [Motrin 800 MG tab] 800 mg PO Q6H PRN #30 tablet PRN Reason: Pain, Mild (1-3) HYDROcodone/APAP 5-325 [[place] 5/325] 1 - 2 each PO Q4HR PRN #30 tablet PRN Reason: Pain - Provider Discharge Summary Activity: routine, no sex for 6 weeks, no heavy lifting 4 weeks, no strenuous exercise Diet: routine Instructions: routine Additional instructions: [] Smoking cessation referral if applicable(refer to patient education folder for contact #) [] Refer to [facility]'s [facility] Booklet Call your doctor immediately for: * Fever > 100.5 * Heavy vaginal bleeding ( >1 pad per hour) * Severe persistent headache * Shortness of breath * Reddened, hot, painful area to leg or breast * Drainage or odor from incision. * Keep incision clean and dry at all times and follow doctor's instructions regarding bathing/showering - Follow up plan Follow up: BRIDGETTE HATCH MD [Primary Care Provider] - 7 Days (Follow-up at [facility] as needed or in 1 week for incision and BP check)
[2019-12-16] MEDS: PRENATAL VIT27-FE FUMARATE-FOLIC ACID VIT TAB PO SCH (14:20)
[2019-12-17] MEDS: PRENATAL VIT27-FE FUMARATE-FOLIC ACID VIT TAB PO SCH (08:38)
[2019-12-17] MEDS: FERROUS SULFATE 325 MG TAB PO SCH (08:38)
[2019-12-17 12:19] VITALS: BP 139/84
== END 2019-12-17 12:45 | disposition home or self-care (01) | DRG 765 ==
LOC: TRG 18:30 → LD 18:30 → TRG 12-14 18:13 → LD 12-14 18:14 → OB 12-15 22:40
PROVIDERS: ADMIT Obstetrics & Gynecology; ATTEND Obstetrics & Gynecology
PROC: 10D00Z1 Extraction of Products of Conception, Low, Open Approach (ICD-10-PCS; principal; 2019-12-14)
DX: O14.14 Severe pre-eclampsia complicating childbirth (principal); D62 Acute posthemorrhagic anemia; O99.824 Streptococcus B carrier state complicating childbirth; O90.81 Anemia of the puerperium; O75.0 Maternal distress during labor and delivery; Z3A.38 38 weeks gestation of pregnancy; Z37.0 Single live birth
CPT/HCPCS: 36415; 76819; 80053; 80307; 81001; 82565; 83615; 83735; 84450; 84460; 84550; 85014; 85018; 85025; 85027; 86850; 86900; 86901; 88307; G0378; J0290; J0690; J1885; J2270; J2405; J2590; J2765; J3010; J3475; J3490; J7120